=== PATIENT | male | born 1960 | race African-American/Black ===

== ENCOUNTER 2019-11-09 13:39 | Inpatient (IN) | payer MEDICAID ==
[~2019-11-09] VITALS: Ht 172.7 cm; Wt 94.8 kg
[2019-11-09] MEDS ORDERED: SODIUM CHLORIDE 0.9% 1,000 ML IV ONE ×2 (15:28→18:00)
[2019-11-09] MEDS ORDERED: CEFAZOLIN 1000MG PREMIX 50 ML IV ONE (15:30)
[2019-11-09 16:30] LABS: BASOPHILS % 0.7 % (0.0-2.0); HEMATOCRIT. 28.5 % (42.0-52.0); HEMOGLOBIN. 9.6 g/dL (14.0-18.0); LYMPHOCYTES % 12.4 % (20.0-50.0); MEAN CORPUSCULAR HEMOGLOBIN 29.7 pg (28.0-32.0); MEAN CORPUSCULAR VOLUME 87.9 fL (80.0-94.0); MEAN PLATELET VOLUME 7.8 fl (7.4-10.4); MONOCYTES % 6.4 % (2.0-8.0); NEUTROPHILS % 79.5 % (40.0-76.0); PLATELET 286 x1000/uL (130-400); RED BLOOD CELL COUNT 3.25 mill/uL (4.7-6.1); RED CELL DISTRIBUTION WIDTH 15.2 % (11.6-14.6)
[2019-11-09 16:32] LABS: CHLORIDE 99 mEq/L (98-107)
[2019-11-09 16:35] LABS: ETHANOL BLOOD < 10 mg/dL
[2019-11-09] MEDS ORDERED: CLONIDINE 0.1MG TABLET PO PRN (20:00)
[2019-11-09] MEDS ORDERED: DEXTROSE 50% WATER 50ML SYRINGE IV PRN (20:00)
[2019-11-09] MEDS ORDERED: HYDRALAZINE 20MG/ML VIAL IV PRN (20:00)
[2019-11-09] MEDS ORDERED: HYDROCODONE/ACETAMINOPHEN 10/325MG TABLET PO PRN (20:00)
[2019-11-09] MEDS ORDERED: ONDANSETRON HCL 4MG/2ML INJ IV PRN (20:00)
[2019-11-09] MEDS ORDERED: ACETAMINOPHEN 325MG TABLET PO PRN (20:00)
[2019-11-09] MEDS ORDERED: GUAIFENESIN 200MG/10ML SUGAR FREE UDC PO PRN (20:00)
[2019-11-09] MEDS ORDERED: DIPHENHYDRAMINE 50MG/ML VIAL IV PRN (20:00)
[2019-11-09] MEDS ORDERED: MORPHINE SULFATE 2 MG/ML CPJ (NOT FOR IM USE) IV PRN (20:00)
[2019-11-09] MEDS ORDERED: LORAZEPAM 2MG/ML CPJ IV PRN (20:00)
[2019-11-09] MEDS ORDERED: MAGNESIUM/ALUMINUM HYDROXIDE/SIMETHICONE 30ML UDC PO PRN (20:00)
[2019-11-09] MEDS ORDERED: DOCUSATE SODIUM 100MG CAPSULE PO PRN (20:00)
[2019-11-09] MEDS ORDERED: NA PHOS,M-B/NA PHOS,DI-BA ENEMA 118ML PR PRN (20:00)
[2019-11-09] MEDS ORDERED: PIPERACILLIN/TAZOBACTAM 3.375 G in DEXT 5% WATER 100 ML IV NR (21:15)
[2019-11-09] MEDS ORDERED: VANCOMYCIN 1 G PREMIX 200 ML IV SCH (21:30)
[2019-11-09] MEDS: INSULIN LISPRO 100 UNITS/ML SUBCUT SCH (21:33)
[2019-11-09] MEDS: BLOOD SUGAR DIAGNOSTIC STRIP TEST SCH (21:34)
[2019-11-09 23:30] VITALS: BP 91/64
[2019-11-09] MEDS ORDERED: HYDRALAZINE 10 MG in SODIUM CHLORIDE 0.9% 49.5 ML IV PRN (23:45)
[2019-11-10] VITALS: BP 91/64
[2019-11-10] MEDS: SODIUM CHLORIDE 0.45% 1,000 ML IV SCH (00:01)
[2019-11-10 04:00] VITALS: BP 90/54
[2019-11-10] MEDS ORDERED: PIPERACILLIN/TAZ 3.375G PREMIX 50 ML IV SCH (04:00)
[2019-11-10 05:54] LABS: BASOPHILS % 0.5 % (0.0-2.0); EOSINOPHILS % 1.2 % (0.0-5.0); HEMATOCRIT. 26.9 % (42.0-52.0); HEMOGLOBIN. 8.9 g/dL (14.0-18.0); LYMPHOCYTES % 12.6 % (20.0-50.0); MEAN CORPUSCULAR HEMOGLOBIN 29.1 pg (28.0-32.0); MEAN CORPUSCULAR VOLUME 87.9 fL (80.0-94.0); MEAN PLATELET VOLUME 7.9 fl (7.4-10.4); MONOCYTES % 6.5 % (2.0-8.0); NEUTROPHILS % 79.2 % (40.0-76.0); PLATELET 239 x1000/uL (130-400); RED BLOOD CELL COUNT 3.06 mill/uL (4.7-6.1); RED CELL DISTRIBUTION WIDTH 15.2 % (11.6-14.6)
[2019-11-10] MEDS: PIPERACILLIN/TAZOBACTAM 3.375 G in DEXT 5% WATER 100 ML IV SCH ×3 (06:31→21:12)
[2019-11-10] MEDS: SODIUM CHLORIDE 0.9% INJ 3ML FLUSH IVF SCH ×2 (06:32→13:06)
[2019-11-10 07:00] LABS: CHLORIDE 104 mEq/L (98-107)
[2019-11-10] MEDS: INSULIN LISPRO 100 UNITS/ML SUBCUT SCH ×4 (07:50→20:51)
[2019-11-10] MEDS: BLOOD SUGAR DIAGNOSTIC STRIP TEST SCH ×4 (07:55→20:25)
[2019-11-10 08:00] VITALS: BP 105/63
[2019-11-10] MEDS ORDERED: VANCOMYCIN 750 MG PREMIX 150 ML IV SCH (08:00)
[2019-11-10] MEDS: ENOXAPARIN 40MG/0.4ML SYR SUBCUT SCH (09:00)
[2019-11-10] MEDS: VANCOMYCIN 1500MG in DEXTROSE 5% WATER 250ML IV SCH ×2 (10:02→20:50)
[2019-11-10 12:00] VITALS: BP 108/63
[2019-11-10 16:00] VITALS: BP 110/70
[2019-11-10 20:00] VITALS: BP 99/63
[2019-11-11] VITALS: BP 90/47
[2019-11-11 04:00] VITALS: BP 78/44
[2019-11-11] MEDS: PIPERACILLIN/TAZOBACTAM 3.375 G in DEXT 5% WATER 100 ML IV SCH ×3 (06:19→21:59)
[2019-11-11 06:52] LABS: HEMATOCRIT 24.9 % (42.0-52.0); HEMOGLOBIN 8.5 g/dL (14.0-18.0); MEAN CORPUSCULAR HEMOGLOBIN 29.6 pg (28.0-32.0); PLATELET 222 x1000/uL (130-400); RED BLOOD CELL COUNT 2.87 mill/uL (4.7-6.1)
[2019-11-11 07:08] LABS: CHLORIDE 105 mEq/L (98-107)
[2019-11-11] MEDS: BLOOD SUGAR DIAGNOSTIC STRIP TEST SCH ×4 (07:19→21:58)
[2019-11-11] MEDS: ENOXAPARIN 40MG/0.4ML SYR SUBCUT SCH (08:18)
[2019-11-11] MEDS: INSULIN LISPRO 100 UNITS/ML SUBCUT SCH ×4 (09:09→21:58)
[2019-11-11] MEDS: SODIUM CHLORIDE 0.45% 1,000 ML IV SCH (13:39)
[2019-11-11] MEDS: SODIUM CHLORIDE 0.9% INJ 3ML FLUSH IVF SCH (14:47)
[2019-11-11] MEDS: VANCOMYCIN 1 G PREMIX 200 ML IV SCH (17:47)
[2019-11-11 20:00] VITALS: BP 110/69
[2019-11-12] VITALS: BP 108/68
[2019-11-12 04:00] VITALS: BP 97/64
[2019-11-12] MEDS: PIPERACILLIN/TAZOBACTAM 3.375 G in DEXT 5% WATER 100 ML IV SCH ×3 (05:21→22:27)
[2019-11-12] MEDS: INSULIN LISPRO 100 UNITS/ML SUBCUT SCH ×4 (07:25→23:47)
[2019-11-12] MEDS: BLOOD SUGAR DIAGNOSTIC STRIP TEST SCH ×4 (07:25→21:00)
[2019-11-12 08:00] VITALS: BP 93/54
[2019-11-12] MEDS: ENOXAPARIN 40MG/0.4ML SYR SUBCUT SCH (08:05)
[2019-11-12] MEDS: SODIUM CHLORIDE 0.45% 1,000 ML IV SCH (09:31)
[2019-11-12 12:00] VITALS: BP 104/68
[2019-11-12] MEDS: SODIUM CHLORIDE 0.9% INJ 3ML FLUSH IVF SCH ×2 (14:14→22:27)
[2019-11-12] MEDS: VANCOMYCIN 1 G PREMIX 200 ML IV SCH (14:19)
[2019-11-12 16:00] VITALS: BP 107/67
[2019-11-12 20:00] VITALS: BP 118/60
[2019-11-13] VITALS: BP 108/64
[2019-11-13 04:00] VITALS: BP 112/77
[2019-11-13] MEDS: BLOOD SUGAR DIAGNOSTIC STRIP TEST SCH ×4 (06:24→21:00)
[2019-11-13] MEDS: PIPERACILLIN/TAZOBACTAM 3.375 G in DEXT 5% WATER 100 ML IV SCH ×3 (06:25→22:08)
[2019-11-13] MEDS: SODIUM CHLORIDE 0.9% INJ 3ML FLUSH IVF SCH ×3 (06:25→22:18)
[2019-11-13] MEDS: SODIUM CHLORIDE 0.45% 1,000 ML IV SCH (06:25)
[2019-11-13] MEDS: VANCOMYCIN 1 G PREMIX 200 ML IV SCH (06:26)
[2019-11-13] MEDS: INSULIN LISPRO 100 UNITS/ML SUBCUT SCH ×4 (06:26→22:31)
[2019-11-13 08:00] VITALS: BP 102/61
[2019-11-13] MEDS: ENOXAPARIN 40MG/0.4ML SYR SUBCUT SCH (09:00)
[2019-11-13 12:00] VITALS: BP 114/73
[2019-11-13 16:00] VITALS: BP 115/80
[2019-11-13 20:00] VITALS: BP 114/69
[2019-11-14] VITALS: BP 135/83
[2019-11-14] MEDS: IPRATROPIUM/ALBUTEROL 0.5-3(2.5)MG/3ML NEB NEB PRN (01:24)
[2019-11-14] MEDS: SODIUM CHLORIDE 0.45% 1,000 ML IV SCH (01:33)
[2019-11-14 04:00] VITALS: BP 127/73
[2019-11-14] MEDS: SODIUM CHLORIDE 0.9% INJ 3ML FLUSH IVF SCH ×3 (06:00→22:00)
[2019-11-14] MEDS: BLOOD SUGAR DIAGNOSTIC STRIP TEST SCH ×4 (06:48→21:11)
[2019-11-14] MEDS: PIPERACILLIN/TAZOBACTAM 3.375 G in DEXT 5% WATER 100 ML IV SCH ×3 (06:48→21:03)
[2019-11-14] MEDS: INSULIN LISPRO 100 UNITS/ML SUBCUT SCH ×4 (07:24→21:09)
[2019-11-14 08:00] VITALS: BP 113/70
[2019-11-14] MEDS: ENOXAPARIN 40MG/0.4ML SYR SUBCUT SCH (09:00)
[2019-11-14 12:00] VITALS: BP 113/72
[2019-11-14] MEDS ORDERED: VANCOMYCIN 750 MG PREMIX 150 ML IV SCH (12:00)
[2019-11-14 16:02] VITALS: BP 108/70
[2019-11-14 20:00] VITALS: BP 120/83
[2019-11-14] MEDS: ENOXAPARIN 30MG/0.3ML SYR SUBCUT SCH (20:50)
[2019-11-15] VITALS: BP 119/72
[2019-11-15] MEDS: SODIUM CHLORIDE 0.45% 1,000 ML IV SCH ×2 (00:56→14:40)
[2019-11-15] MEDS: IPRATROPIUM/ALBUTEROL 0.5-3(2.5)MG/3ML NEB NEB PRN (03:04)
[2019-11-15 04:00] VITALS: BP 114/55
[2019-11-15] MEDS: PIPERACILLIN/TAZOBACTAM 3.375 G in DEXT 5% WATER 100 ML IV SCH ×3 (05:30→21:01)
[2019-11-15] MEDS: SODIUM CHLORIDE 0.9% INJ 3ML FLUSH IVF SCH ×2 (05:30→14:40)
[2019-11-15] MEDS: BLOOD SUGAR DIAGNOSTIC STRIP TEST SCH ×4 (06:39→21:16)
[2019-11-15] MEDS: INSULIN LISPRO 100 UNITS/ML SUBCUT SCH ×4 (07:30→21:18)
[2019-11-15 08:00] VITALS: BP 126/76
[2019-11-15] MEDS: ENOXAPARIN 30MG/0.3ML SYR SUBCUT SCH ×2 (09:26→21:01)
[2019-11-15 12:00] VITALS: BP 144/90
[2019-11-15 16:00] VITALS: BP 125/72
[2019-11-15] MEDS ORDERED: SODIUM HYPOCHLORITE 0.125% 473ML SOLUTION TOP SCH (17:00)
[2019-11-15 20:00] VITALS: BP 150/84
[2019-11-16] VITALS (7 sets, daily range): BP systolic 129–154; BP diastolic 71–91
[2019-11-16] MEDS: SODIUM CHLORIDE 0.9% INJ 3ML FLUSH IVF SCH ×3 (06:00→14:18)
[2019-11-16] MEDS: BLOOD SUGAR DIAGNOSTIC STRIP TEST SCH ×4 (06:45→21:54)
[2019-11-16] MEDS: INSULIN LISPRO 100 UNITS/ML SUBCUT SCH ×4 (07:46→21:00)
[2019-11-16] MEDS: ENOXAPARIN 30MG/0.3ML SYR SUBCUT SCH ×2 (10:04→21:58)
[2019-11-16] MEDS: SODIUM CHLORIDE 0.45% 1,000 ML IV SCH (14:12)
[2019-11-16] MEDS: PIPERACILLIN/TAZOBACTAM 3.375 G in DEXT 5% WATER 100 ML IV SCH ×2 (14:13→14:28)
== END 2019-11-16 22:40 | DRG 364 ==
LOC: ER 13:56 → EDSEX 13:56 → EDBEDREQTM 15:33 → EDBEDREQ 15:33 → EDBEDREQSVC 15:33 → 6EST 18:56 → EDBEDREQTM 18:59 → EDBEDREQ 18:59 → ENRESERV 21:40
PROVIDERS: ADMIT Internal Medicine; ATTEND Internal Medicine
PROC: 0KBL0ZZ Excision of Left Abdomen Muscle, Open Approach (ICD-10-PCS; principal; 2019-11-14)
PROC: 0KBK0ZZ Excision of Right Abdomen Muscle, Open Approach (ICD-10-PCS; 2019-11-14)
PROC: 0JB80ZZ Excision of Abdomen Subcutaneous Tissue and Fascia, Open Approach (ICD-10-PCS; 2019-11-14)
PROC: 0KBD0ZZ Excision of Left Hand Muscle, Open Approach (ICD-10-PCS; 2019-11-14)
DX: L03.115 Cellulitis of right lower limb (principal); E43 Unspecified severe protein-calorie malnutrition; L89.894 Pressure ulcer of other site, stage 4; E11.42 Type 2 diabetes mellitus with diabetic polyneuropathy; L89.893 Pressure ulcer of other site, stage 3; D64.9 Anemia, unspecified; S61.215A Laceration without foreign body of left ring finger without damage to nail, initial encounter; E11.65 Type 2 diabetes mellitus with hyperglycemia; L03.116 Cellulitis of left lower limb; I87.2 Venous insufficiency (chronic) (peripheral); L89.90 Pressure ulcer of unspecified site, unspecified stage; X58.XXXA Exposure to other specified factors, initial encounter; Y93.89 Activity, other specified; Y92.89 Other specified places as the place of occurrence of the external cause; Z59.0 Homelessness; Y99.8 Other external cause status
CPT/HCPCS: 36415; 71045; 80048; 80053; 80202; 80320; 82140; 82962; 83036; 84134; 85025; 85027; 93005; 93970; 94640; 96365; 97110; 97116; 97162; 97166; 97530; 99285; C1893; J0690; J1650; J1815; J2543; J3370; J7030; J7060; G0480